=== PATIENT | female | born 1995 | race American Indian/Alaskan Native ===

== ENCOUNTER 2017-08-07 22:46 | Emergency (ER) | payer SELFPAY ==
[2017-08-08] MEDS ORDERED: XYLOCAINE 1% MPF 5 mL INFILTRATI ONE (03:53)
--- NOTE | 2017-08-08 04:01 | Emergency Department Report ---
Abscess Boil HPI - HPI Chief Complaint: Extremity Injury, Upper Stated Complaint: RT MIDDLE FINGER Duration: 4 Days Location: Other (right middle finger) Severity: Moderate History: Yes Pain, No Fever, No Purulent Drainage, No Numbness, No Foreign Body , No Previous History, No Insect Bite HPI: 21-year-old female comes in for complaint of right middle finger swelling and pain around the nail bed. Patient denies any injury. Feels that this is been going on for about 4 days. Patient has no known drug allergies she has a history of hypertension and she is on lisinopril 20 mg daily. Home Medications: Home Medications Medication Instructions Recorded Confirmed Last Taken Lisinopril 20 mg PO DAILY 08/08/17 08/08/17 Unknown Previous Rx's Medication Instructions Recorded Last Taken Type Cephalexin [Keflex] 500 mg PO BID 10 Days #20 capsule 08/08/17 Unknown Rx Allergies/Adverse Reactions: Allergies Allergy/AdvReac Type Severity Reaction Status Date / Time No Known Allergies Allergy Unverified 08/08/17 00:17 ED Review of Systems ROS: Stated complaint: RT MIDDLE FINGER Other details as noted in HPI Constitutional: denies: chills, fever Eyes: denies: eye pain, eye discharge, vision change ENT: denies: ear pain, throat pain Respiratory: denies: cough, shortness of breath, wheezing Cardiovascular: denies: chest pain, palpitations Endocrine: no symptoms reported Gastrointestinal: denies: abdominal pain, nausea, diarrhea Genitourinary: denies: urgency, dysuria, discharge Musculoskeletal: denies: back pain, joint swelling, arthralgia Skin: other (swelling and tenderness around the right middle finger cuticle ) Neurological: denies: headache, weakness, paresthesias Psychiatric: denies: anxiety, depression Hematological/Lymphatic: denies: easy bleeding, easy bruising ED Past Medical Hx - Past Medical History Hx Hypertension: Yes - Surgical History Past Surgical History?: No - Social History Smoking Status: Never Smoker Substance Use Type: None - Medications Home Medications: Home Medications Medication Instructions Recorded Confirmed Last Taken Type Cephalexin [Keflex] 500 mg PO BID 10 Days #20 capsule 08/08/17 Unknown Rx Lisinopril 20 mg PO DAILY 08/08/17 08/08/17 Unknown History ED Abscess Boil Physical Exam - Exam General: Vital signs noted. No distress. Alert and acting appropriately. Size: 1 cm Exam: Yes Tenderness, Yes Fluctuance, Yes Normal Neurologic Exam, Yes Normal Circulation, No Surrounding Cellulites/Erythema, No Lymphangitis, No Crepitation , No Heart Murmur Exam: Right middle finger swelling and erythematous around the cuticle and medial aspect of the finger. Capillary refill less than 2 seconds. Very tender to palpate. I & D Note - I & D Note I & D Note: Sterile field placed down patient has soaked her finger in Betadine. Used a #10 blade 2 incisie the middle finger of the right hand. Discharge returned with no purulent discharge. Finger was wrapped with a sterile bandage. ED Course Vital Signs 08/08/17 00:14 Temperature 98.6 F Pulse Rate 84 Respiratory 16 Rate Blood Pressure 141/95 O2 Sat by Pulse 100 Oximetry Critical care attestation.: If time is entered above; I have spent that time in minutes in the direct care of this critically ill patient, excluding procedure time. ED Medical Decision Making - Medical Decision Making Patient has been evaluated by this provider fast track. I discussed with patient that we will most likely need to incision and drain the paronychia. Discussed the patient that I will numb the area with the block. An incision and drained the paronychia. Also discussed the patient placed on Keflex 500 mg twice a day for 10 days. I'll also start the patient to do warm salt soaks of the finger. She can take Tylenol or Motrin for pain management. Discussed with her to follow up with her primary care provider for further evaluation. Discussed the patient if he gets worse or swelling or redness purulent discharge fever to return back to the emergency room for us to reevaluate her patient verbalized understanding. ED Disposition Clinical Impression: Paronychia of finger of right hand Disposition: DC-01 TO HOME OR SELFCARE Is pt being admited?: No Does the pt Need Aspirin: No Condition: Stable Instructions: Paronychia (ED) Additional Instructions: Please complete antibiotics as prescribed. Please do warm salt water soaks on that finger twice a day for 3 days. Follow up with her primary care provider for further evaluation. She do not have one I have listed one below her convenience. Return back to the emergency room if the swelling gets worse status Purulent discharge fever. Prescriptions: Cephalexin [Keflex] 500 mg PO BID 10 Days #20 capsule Referrals: MONICA SILVERMAN MD [Primary Care Provider] - 3-5 Days Forms: Work/School Release Form(ED)
[2017-08-08] MEDS ORDERED: TYLENOL ONE (04:56)
[2017-08-08] MEDS ORDERED: TYLENOL PO ONE (04:57)
[2017-08-08 05:50] VITALS: BP 129/76
== END 2017-08-08 05:48 | disposition home or self-care (01) ==
LOC: ED 22:46
DX: L03.011 Cellulitis of right finger (principal)
CPT/HCPCS: 99282

== ENCOUNTER 2017-08-10 17:51 | Emergency (ER) | payer SELFPAY ==
[2017-08-10 18:21] VITALS: BP 121/87
--- NOTE | 2017-08-10 20:16 | Emergency Department Report ---
Abscess Boil HPI - HPI Chief Complaint: Laceration/Recheck/Suture Stated Complaint: SWOLLEN FINGER Time Seen by Provider: 08/10/17 19:06 Duration: 4 Days Location: Upper Extremity Severity: None History: Yes Pain, No Fever, No Purulent Drainage, No Numbness, No Foreign Body , No Previous History, No Insect Bite HPI: This is a 21-year-old female nontoxic, well nourished in appearance, no acute signs of distress presents to the ED with c/o of left middle finger paronychia. Patient states she was here 4 days ago and was seeing a ED provider and a incision and drainage has been performed with no drainage. Patient's symptoms and the swelling has increased. Patient she is currently taking Keflex with no improvement. Patient denies any trauma to the region. Denies any other symptoms. Denies any drug allergies or past medical history. Home Medications: Home Medications Medication Instructions Recorded Confirmed Last Taken Lisinopril 20 mg PO DAILY 08/08/17 08/08/17 Unknown Previous Rx's Medication Instructions Recorded Last Taken Type Cephalexin [Keflex] 500 mg PO BID 10 Days #20 capsule 08/08/17 Unknown Rx Sulfamethoxazole/Trimethoprim 1 each PO BID #14 tablet 08/10/17 Unknown Rx [Bactrim DS TAB] traMADol [Ultram] 50 mg PO Q6HR PRN #12 tablet 08/10/17 Unknown Rx Allergies/Adverse Reactions: Allergies Allergy/AdvReac Type Severity Reaction Status Date / Time No Known Allergies Allergy Unverified 08/08/17 00:17 ED Review of Systems ROS: Stated complaint: SWOLLEN FINGER Other details as noted in HPI Constitutional: denies: chills, fever Eyes: denies: eye pain, eye discharge, vision change ENT: denies: ear pain, throat pain Respiratory: denies: cough, shortness of breath, wheezing Cardiovascular: denies: chest pain, palpitations Endocrine: no symptoms reported Gastrointestinal: denies: abdominal pain, nausea, diarrhea Genitourinary: denies: urgency, dysuria, discharge Musculoskeletal: denies: back pain, joint swelling, arthralgia Skin: denies: rash, lesions Neurological: denies: headache, weakness, paresthesias Psychiatric: denies: anxiety, depression Hematological/Lymphatic: denies: easy bleeding, easy bruising ED Past Medical Hx - Past Medical History Previous Medical History?: Yes Hx Hypertension: Yes Additional medical history: right middle finger cellulitis - Surgical History Past Surgical History?: No - Social History Smoking Status: Never Smoker Substance Use Type: Prescribed - Medications Home Medications: Home Medications Medication Instructions Recorded Confirmed Last Taken Type Cephalexin [Keflex] 500 mg PO BID 10 Days #20 capsule 08/08/17 Unknown Rx Lisinopril 20 mg PO DAILY 08/08/17 08/08/17 Unknown History Sulfamethoxazole/Trimethoprim 1 each PO BID #14 tablet 08/10/17 Unknown Rx [Bactrim DS TAB] traMADol [Ultram] 50 mg PO Q6HR PRN #12 tablet 08/10/17 Unknown Rx ED Abscess Boil Physical Exam - Exam General: Vital signs noted. No distress. Alert and acting appropriately. GENERAL: The patient is a well-developed, well-nourished in no apparent distress. Patient is alert and acting appropriately for age. Alert and oriented 3, no apparent distress, normal gait, atraumatic. HEENT: Head is normocephalic and atraumatic. PERRL, Extraocular muscles are intact. Pupils are equal, round, and reactive to light and accommodation. Nares appeared normal. Mouth is well hydrated and without lesions. Mucous membranes are moist. Posterior pharynx clear of any exudate or lesions. Mouth is well hydrated and without lesions. Tonsils not erythematous or swollen. Uvula midline. Tongue elevated. Mucous members are moist. Posterior pharynx clear, no exudate or lesions. Patent airways. NECK: Supple. No carotid bruits. No lymphadenopathy or thyromegaly.nontender. No meningitic signs are noted. LUNGS: Clear to auscultation. Non labor breathing. No intercostal retractions. Symmetrical with respiration, no wheezing, no rales, or crackles. HEART: Regular rate and rhythm without murmur, rubs or gallops. No reproducible. S1, S2 present, regular rate and rhythm without murmur, no rubs, no gallops. ABDOMEN: Soft, nontender, and nondistended. Positive bowel sounds. No hepatosplenomegaly was noted. No guarding or rebound tenderness, negative epigastric bruit. Negative psoas sign, negative mcfarland sign, negative McBurneys sign EXTREMITIES: Without any cyanosis, clubbing, rash, lesions or edema. Peripheral pulses intact. Capillary refill less than 2 seconds. Full range of motion bilaterally. NEUROLOGIC: Cranial nerves II through XII are grossly intact. Alert and oriented x 3. Normal gait. Symmetrical strength and sensation. Reflexes 2+ throughout. Cerebellar testing normal. GCS score of 15. PSYCHIATRIC: Normal affect with no suicidal or homicidal ideations. Skin: One cm swelling with induration and fluctuance to the right middle finger. Size: 1 cm Exam: Yes Tenderness, Yes Fluctuance, Yes Surrounding Cellulites/Erythema, Yes Normal Neurologic Exam, Yes Normal Circulation, No Lymphangitis, No Crepitation , No Heart Murmur I & D Note - I & D Note I & D Note: Under sterile field, I used Betadine to cleanse the area. I then used an 11 blade to make a 1 cm incision under the cuticle. About 1 mL of purulent drainage has been noted. I then used sterile 0.9% normal saline flush to flush the wound with total volume of 40 mL used. A sterile 4 x 4 with tape has been applied as dressing. Bleeding is under control. Patient tolerated the procedure well with no signs of distress noted. ED Course Vital Signs 08/10/17 18:16 Temperature 98.6 F Pulse Rate 97 H Respiratory 18 Rate Blood Pressure 121/87 O2 Sat by Pulse 100 Oximetry - Reevaluation(s) Reevaluation #1: 08/10/17 20:15 Patient is speaking in full sentences with no signs of distress noted. Critical care attestation.: If time is entered above; I have spent that time in minutes in the direct care of this critically ill patient, excluding procedure time. ED Medical Decision Making - Medical Decision Making This is a 21-year-old female that presents with paronychia. Patient is stable and was examined by me. Incision and drainage has been performed and patient tolerated well. I instructed patient to discontinue Keflex and I will treat patient with bactrim. Patient was instructed to Follow-up with a primary care doctor in 3-5 days or if symptoms worsen and continue return to emergency room as soon as possible. At time time of discharge, the patient does not seem toxic or ill in appearance. No acute signs of distress noted. Patient agrees to discharge treatment plan of care. No further questions noted by the patient. ED Disposition Clinical Impression: Paronychia Disposition: -01 TO HOME OR SELFCARE Is pt being admited?: No Does the pt Need Aspirin: No Condition: Stable Instructions: Paronychia (ED), Sulfamethoxazole/Trimethoprim (By mouth), Tramadol (By mouth) Additional Instructions: Follow-up with a primary care doctor in 3-5 days or if symptoms worsen and continue return to emergency room as soon as possible. Discontinue Keflex and take Bactrim as prescribed. Take Ultram for pain as needed as prescribed but do not operate any machinery while taking Ultram due to drowsiness Continue to soak his finger in warm water and keep the finger clean with soap and water. Prescriptions: Sulfamethoxazole/Trimethoprim [Bactrim DS TAB] 1 each PO BID #14 tablet traMADol [Ultram] 50 mg PO Q6HR PRN #12 tablet PRN Reason: Pain Referrals: MONICA SILVERMAN MD [Primary Care Provider] - 3-5 Days PRIMARY CARE, [Referring] - 3-5 Days [facility] [Outside] - 3-5 Days [facility] [Outside] - 3-5 Days Forms: Work/School Release Form(ED)
== END 2017-08-10 20:20 | disposition home or self-care (01) ==
LOC: ED 17:51
DX: L03.012 Cellulitis of left finger (principal); I10 Essential (primary) hypertension
CPT/HCPCS: 99282

== ENCOUNTER 2017-11-28 20:22 | Emergency (ER) | payer SELFPAY ==
[2017-11-28 20:49] VITALS: BP 137/92
[2017-11-28] MEDS ORDERED: ASPIRIN PO ONE (20:49)
[2017-11-28 21:12] LABS: Basophils # (Auto) 0.1 K/mm3 (0.0-0.1); Basophils % (Auto) 0.9 % (0.0-1.8); Eosinophils # (Auto) 0.1 K/mm3 (0.0-0.4); Eosinophils % (Auto) 1.6 % (0.0-4.3); Hematocrit 36.8 % (30.3-42.9); Hemoglobin 12.2 gm/dl (10.1-14.3); Lymphocytes # (Auto) 1.5 K/mm3 (1.2-5.4); Lymphocytes % (Auto) 18.5 % (13.4-35.0); Mean Corpuscular HGB Conc 33 % (30-34); Mean Corpuscular Hemoglobin 27 pg (28-32); Mean Corpuscular Volume 82 fl (79-97); Monocytes # (Auto) 0.5 K/mm3 (0.0-0.8); Monocytes % (Auto) 6.2 % (0.0-7.3); Platelet Count 297 K/mm3 (140-440); Red Blood Count 4.47 M/mm3 (3.65-5.03); Red Cell Distribution Width 13.4 % (13.2-15.2)
[2017-11-28 21:31] LABS: BUN/Creatinine Ratio 20; Blood Urea Nitrogen 12 mg/dL (7-17); Calcium 9.2 mg/dL (8.4-10.2); Hemolysis Index 6
== END 2017-11-28 20:58 | disposition left against medical advice (07) ==
LOC: ED 20:22
DX: R07.9 Chest pain, unspecified (principal); R06.02 Shortness of breath; Z53.21 Procedure and treatment not carried out due to patient leaving prior to being seen by health care provider
CPT/HCPCS: 36415; 80048; 84484; 85025; 93005; 93010